=== PATIENT | male | born 1970 | race Caucasian/White ===

== ENCOUNTER 2017-08-28 09:24 | Inpatient (IN) | payer SELFPAY ==
[~2017-08-28] VITALS: Ht 172.7 cm; Wt 64.4 kg
[2017-08-28 09:55] LABS: BASOPHILS % 0.3 % (0.0-2.0); EOSINOPHILS % 0.4 % (0.0-5.0); HEMATOCRIT. 45.9 % (42.0-52.0); HEMOGLOBIN. 16.2 g/dL (14.0-18.0); LYMPHOCYTES % 18.8 % (20.0-50.0); MEAN CORPUSCULAR HEMOGLOBIN 30.6 pg (28.0-32.0); MEAN CORPUSCULAR VOLUME 86.8 fL (80.0-94.0); MEAN PLATELET VOLUME 8.5 fl (7.4-10.4); MONOCYTES % 5.6 % (2.0-8.0); NEUTROPHILS % 74.9 % (40.0-76.0); PLATELET 192 x1000/uL (130-400); RED BLOOD CELL COUNT 5.28 mill/uL (4.7-6.1); RED CELL DISTRIBUTION WIDTH 13.1 % (11.6-14.6)
[2017-08-28 10:00] LABS: INR 1.2; PROTHROMBIN TIME 12.2 sec (9.4-11.6)
[2017-08-28 10:03] LABS: CHLORIDE 109 mEq/L (98-107)
[2017-08-28] MEDS ORDERED: MORPHINE SULFATE 4 MG/ML CPJ (NOT FOR IM USE) IV ONE (11:00)
[2017-08-28] MEDS ORDERED: REGADENOSON 0.4 MG/5 ML IV NR (16:15)
[2017-08-28] MEDS ORDERED: ASPIRIN 325MG EC TABLET PO SCH (16:15)
[2017-08-28] MEDS ORDERED: MAGNESIUM/ALUMINUM HYDROXIDE/SIMETHICONE 30ML UDC PO PRN (16:30)
[2017-08-28] MEDS ORDERED: ACETAMINOPHEN 325MG TABLET PO PRN (16:30)
[2017-08-28] MEDS ORDERED: LORAZEPAM 0.5MG TABLET PO PRN (16:30)
[2017-08-28] MEDS ORDERED: ACETAMINOPHEN 650MG/20.3ML UDC GT PRN (16:30)
[2017-08-28] MEDS ORDERED: DOCUSATE SODIUM 100MG CAPSULE PO PRN (16:30)
[2017-08-28] MEDS ORDERED: ONDANSETRON HCL 4MG/2ML VIAL IV PRN (16:30)
[2017-08-28] MEDS ORDERED: GUAIFENESIN 200MG/10ML SUGAR FREE UDC PO PRN (16:30)
[2017-08-28] MEDS ORDERED: CLONIDINE 0.1MG TABLET PO PRN ×2 (16:30→17:00)
[2017-08-28] MEDS ORDERED: ACETAMINOPHEN 650MG SUPP PR PRN (16:30)
[2017-08-28] MEDS ORDERED: DIPHENHYDRAMINE 50MG/ML VIAL IV PRN (16:30)
[2017-08-28] MEDS ORDERED: MORPHINE SULFATE 4 MG/ML CPJ (NOT FOR IM USE) IV PRN (17:00)
[2017-08-28] MEDS ORDERED: CLONIDINE 0.2MG TABLET PO PRN (17:00)
[2017-08-28] MEDS ORDERED: GLIP5TAB12 PO (18:33)
[2017-08-28] MEDS ORDERED: METF10002 PO (18:33)
[2017-08-28 20:00] VITALS: BP 116/71
[2017-08-28] MEDS: AMLODIPINE 2.5MG TABLET PO SCH (20:04)
[2017-08-28] MEDS: ASPIRIN 81MG EC TABLET PO SCH (20:05)
[2017-08-28] MEDS: HYDROCODONE/ACETAMINOPHEN 5/325MG TABLET PO PRN (20:06)
[2017-08-28 21:44] LABS: CLARITY URINE CLEAR (CLEAR); COLOR URINE YELLOW (YELLOW); KETONES URINE NEGATIVE (NEGATIVE); LEUKOCYTE ESTERASE URINE NEGATIVE (NEGATIVE); NITRITE URINE NEGATIVE (NEGATIVE); OCCULT BLOOD URINE NEGATIVE (NEGATIVE); PROTEIN URINE NEGATIVE (NEGATIVE); SPECIFIC GRAVITY URINE 1.024 (1.005-1.030); UROBILINOGEN URINE 0.2 E.U./dL (0.2-1.0)
[2017-08-28 22:08] LABS: *AMPHETAMINES SCREEN URINE NEGATIVE (NEGATIVE); *BARBITURATES SCREEN URINE NEGATIVE (NEGATIVE); *BENZODIAZEPINES SCREEN URINE NEGATIVE (NEGATIVE); *COCAINE SCREEN URINE NEGATIVE (NEGATIVE); CANNABINOID URINE SCREEN NEGATIVE (NEGATIVE); METHADONE URINE SCREEN NEGATIVE (NEGATIVE); OPIATES URINE SCREEN PRESUMTIVE POSITIVE (NEGATIVE); PHENCYCLIDINE URINE SCREEN NEGATIVE (NEGATIVE)
[2017-08-29] VITALS: BP 126/72
[2017-08-29 04:00] VITALS: BP 134/82
[2017-08-29 06:00] LABS: BASOPHILS % 0.2 % (0.0-2.0); EOSINOPHILS % 1.7 % (0.0-5.0); HEMATOCRIT. 45.1 % (42.0-52.0); HEMOGLOBIN. 15.6 g/dL (14.0-18.0); LYMPHOCYTES % 24.3 % (20.0-50.0); MEAN CORPUSCULAR HEMOGLOBIN 30.2 pg (28.0-32.0); MEAN CORPUSCULAR VOLUME 87.5 fL (80.0-94.0); MEAN PLATELET VOLUME 8.7 fl (7.4-10.4); MONOCYTES % 8.8 % (2.0-8.0); PLATELET 188 x1000/uL (130-400); RED BLOOD CELL COUNT 5.16 mill/uL (4.7-6.1); RED CELL DISTRIBUTION WIDTH 13.1 % (11.6-14.6)
[2017-08-29] MEDS: METFORMIN HCL 500MG TABLET PO SCH ×2 (06:15→17:47)
[2017-08-29] MEDS: GLIPIZIDE 5MG TABLET PO SCH ×2 (06:15→16:50)
[2017-08-29] MEDS: HYDROCODONE/ACETAMINOPHEN 5/325MG TABLET PO PRN ×2 (06:21→15:38)
[2017-08-29 06:50] LABS: CHLORIDE 106 mEq/L (98-107)
[2017-08-29 07:11] LABS: CREATINE KINASE 62 IU/L (39-308); CREATINE KINASE MB FRACTION 0.7 ng/mL (0.5-3.6); HDL CHOLESTEROL 32 mg/dL (40-59); LDL CHOLESTEROL 117 mg/dL (5-100); T4 FREE 1.12 ng/dL (0.76-1.46)
[2017-08-29] MEDS ORDERED: REGADENOSON 0.4 MG/5 ML IV ONE (07:57)
[2017-08-29 08:00] VITALS: BP 114/72
[2017-08-29] MEDS ORDERED: MEDICATION NOT ON FORMULARY EA (Metformin Hcl 1 TAB) PO SCH (09:00)
[2017-08-29] MEDS: AMLODIPINE 2.5MG TABLET PO SCH (09:00)
[2017-08-29] MEDS: ASPIRIN 81MG EC TABLET PO SCH (09:31)
[2017-08-29 12:00] VITALS: BP 112/75
[2017-08-29 16:00] VITALS: BP 124/79
[2017-08-29 18:28] VITALS: BP 124/79
== END 2017-08-29 19:00 | disposition home or self-care (01) | DRG 203 ==
LOC: ER 09:33 → 5WST 11:00 → EDBEDREQ 17:31 → ENRESERV 17:31
PROVIDERS: ADMIT Internal Medicine; ATTEND Internal Medicine
DX: R07.89 Other chest pain (principal); I10 Essential (primary) hypertension; E11.9 Type 2 diabetes mellitus without complications; Z79.84 Long term (current) use of oral hypoglycemic drugs; Z79.82 Long term (current) use of aspirin
CPT/HCPCS: 36415; 71045; 78452; 80053; 80061; 80305; 81003; 82550; 82553; 82962; 83036; 83735; 83880; 84439; 84443; 84481; 84484; 85025; 85610; 93005; 93017; 93306; 96374; 96375; 96376; 99285; A9500; J2270; J2405; J2785

== ENCOUNTER 2021-04-27 16:22 | Emergency (ER) | payer MEDICAID ==
[~2021-04-27] VITALS: Ht 162.6 cm; Wt 59.0 kg
[~2021-04-27 16:22] MED LIST: GLIP5TAB12 PO; METF-416 PO
[2021-04-27] MEDS ORDERED: ACETAMINOPHEN 325MG TABLET PO ONE (17:00)
[2021-04-27 22:12] VITALS: BP 136/68
== END 2021-04-27 22:14 | disposition home or self-care (01) ==
LOC: ER 16:22
DX: M79.604 Pain in right leg (principal); E11.9 Type 2 diabetes mellitus without complications; I10 Essential (primary) hypertension; Z98.890 Other specified postprocedural states
CPT/HCPCS: 73590; 73610; 73630; 99284